=== PATIENT | female | born 1990 | race Caucasian/White ===

== ENCOUNTER 2017-09-05 20:12 | Emergency (ER) | payer MEDICAID ==
[2017-09-05 20:21] VITALS: BP 115/75
[2017-09-05] MEDS ORDERED: Amoxicillin 250 MG Cap PO ONE (20:32)
--- NOTE | 2017-09-05 20:37 | EDM.PDOC ---
ED HPI GENERAL MEDICAL PROBLEM - General Chief Complaint: Laceration Stated Complaint: LACERATION, [id number] Time Seen by Provider: 09/05/17 20:33 Source of Information: Reports: Patient History Limitations: Reports: No Limitations - History of Present Illness INITIAL COMMENTS - FREE TEXT/NARRATIVE: got nip by brant RYAN. Vaginal Pain Score (Numeric/FACES): 8 - Related Data Allergies Allergy/AdvReac Type Severity Reaction Status Date / Time orange Allergy Hives Verified 09/05/17 20:26 Home Meds: Home Meds Acetaminophen [Tylenol Extra Strength] 1,000 mg PO ASDIRECTED PRN 09/30/15 [ History] Ibuprofen 800 mg PO ASDIRECTED PRN 09/30/15 [History] Methylphenidate HCl [Methylphenidate ER] 72 mg PO DAILY 09/30/15 [History] Past Medical History HEENT History: Reports: None Cardiovascular History: Reports: None Respiratory History: Reports: Asthma Gastrointestinal History: Reports: None Genitourinary History: Reports: None [employer] History: Reports: None Musculoskeletal History: Reports: Fracture Neurological History: Reports: None Psychiatric History: Reports: ADHD, Anxiety Endocrine/Metabolic History: Reports: None Hematologic History: Reports: None Immunologic History: Reports: None Oncologic (Cancer) History: Reports: Breast, Cervix Dermatologic History: Reports: None - Infectious Disease History Infectious Disease History: Reports: Chicken Pox - Past Surgical History Head Surgeries/Procedures: Reports: None Female Surgical History: Reports: Cervical Cryotherapy Social & Family History - Tobacco Use Smoking Status *Q: Never Smoker Second Hand Smoke Exposure: No - Caffeine Use Caffeine Use: Reports: Soda - Alcohol Use Days Per Week of Alcohol Use: 0 - Recreational Drug Use Recreational Drug Use: No ED ROS GENERAL - Review of Systems Review Of Systems: ROS reveals no pertinent complaints other than HPI. ED EXAM, SKIN/RASH Exam: See Below Exam Limited By: No Limitations General Appearance: Alert, WD/WN, No Apparent Distress Ears: Hearing Grossly Normal Throat/Mouth: Normal Voice, No Airway Compromise Head: Atraumatic Neck: Non-Tender, Full Range of Motion Respiratory/Chest: No Respiratory Distress Cardiovascular: Regular Rate, Rhythm GI/Abdominal: Soft, Non-Tender (Female) Exam: Other (1x spfl 1/8" lac without bleeding at left labia, no other injury noted) Neurological: Alert, Oriented, Normal Cognition, Normal Gait, No Motor/Sensory Deficits Psychiatric: Normal Affect, Normal Mood Skin: Warm, Dry, Normal Color Location, Skin: Genital Lymphatic: No Adenopathy Course - Vital Signs Last Recorded V/S: Last Vital Signs Temp 37.1 C 09/05/17 20:19 Pulse 86 09/05/17 20:19 Resp 18 09/05/17 20:19 BP 115/75 09/05/17 20:19 Pulse Ox 98 09/05/17 20:19 - Orders/Labs/Meds Meds: Medications Discontinued Medications Generic Name Dose Route Start Last Admin Trade Name Freq PRN Reason Stop Dose Admin Amoxicillin 250 mg 09/05/17 20:32 Amoxil PO 09/05/17 20:33 ONETIME ONE Departure - Departure Time of Disposition: 20:35 Disposition: Home, Self-Care 01 Condition: Good Clinical Impression: Abrasion of labia Qualifiers: Encounter type: initial encounter Qualified Code(s): S30.814A - Abrasion of vagina and vulva, initial encounter - Discharge Information Additional Instructions: 1) follow up at clinic or recheck if there is any change or concern rx given; amox 250mg tid x 30
== END 2017-09-05 20:39 | disposition home or self-care (01) ==
LOC: DL.ED 20:12
DX: S31.41XA Laceration without foreign body of vagina and vulva, initial encounter (principal); F90.9 Attention-deficit hyperactivity disorder, unspecified type; Z79.899 Other long term (current) drug therapy; Z91.018 Allergy to other foods; W54.0XXA Bitten by dog, initial encounter
CPT/HCPCS: 99283; A9270